=== PATIENT | female | born 1980 | race African-American/Black ===

== ENCOUNTER 2022-01-08 09:18 | Emergency (ER) | payer OTHER ==
[~2022-01-08] VITALS: Ht 154.9 cm; Wt 61.8 kg
--- NOTE | 2022-01-08 09:51 | PHYS DOC ---
Past History Past Surgical History: No Surgical History Alcohol Use: None General Adult EDM: Chief Complaint: ABDOMINAL PAIN HPI: HPI: Patient is a 41-year-old female sent in from the area medical clinic for left lower quadrant pain. Patient states the pain started last night. She reports being in from out of town and eating a lot of fast food, does not her normal diet. Patient states she has not had a bowel movement for the past 2 days. Denies any vaginal bleeding or discharge, denies any urinary complaints. Review of Systems: Review of Systems: All other systems within normal limits except for as noted in the HPI Allergies: Allergies: Allergies Coded Allergies Type Severity Reaction Last Updated Verified No Known Drug Allergies 01/08/22 No Physical Exam: PE: Constitutional: Well developed, well nourished, no acute distress, non-toxic appearance. [] HENT: Normocephalic, atraumatic, bilateral external ears normal, nose normal. [] Eyes: PERRLA, conjunctiva normal, no discharge. [] Neck: No rigidity, supple, no stridor. [] Cardiovascular: Regular rate and rhythm, brisk cap refill [] Lungs & Thorax: Non labored symmetric respirations, no tachypnea or respiratory distress [] Abdomen: Soft, nondistended, left lower quadrant tenderness without guarding. Skin: Warm, dry, no erythema, no rash. [] Back: Unremarkable Extremities: No deformities, range of motion grossly intact, no lower extremity edema [] Neurologic: Alert and oriented X 3, no focal deficits noted. [] Psychologic: Affect normal, judgement normal, mood normal. [] Current Patient Data: Vital Signs: Vital Signs Date Time Temp Pulse Resp B/P (MAP) Pulse Ox O2 Delivery O2 Flow Rate FiO2 01/08/22 09:24 97.6 68 18 110/61 (77) 99 Room Air EKG: EKG: [] Radiology/Procedures: Radiology/Procedures: [address] [address] IMAGING REPORT Signed PATIENT: ESMER MORALES ACCOUNT: [id number] : 1980 LOCATION: ER AGE: 41 SEX: F EXAM STATUS: REG ER ORD. PHYSICIAN: TEENA FINNEY MD REASON: LLQ pain-75 ML OMNI 300-CONSTIPATION PROCEDURE: CT ABD PELV W/ IV CONTRST ONLY Exam: CT abdomen/pelvis with intravenous contrast Indication: Left lower quadrant pain, constipation Comparison: None Technique: Helical CT imaging performed of the abdomen and pelvis after the intravenous administration of 75 mL Omnipaque 300 contrast. Sagittal and coronal reformats were obtained. One or more of the following individualized dose reduction techniques were utilized for this examination: 1. Automated exposure control 2. Adjustment of the mA and/or kV according to patient size 3. Use of iterative reconstruction technique. Findings: Lower chest: Lung bases are clear. The heart is normal in size. Liver: Normal. Gallbladder/Biliary Tree: Normal. Pancreas: Normal. Spleen: Normal. Adrenal Glands: Normal. Kidneys/Ureters/Bladder: Kidneys are normal in size. There is a 8 mm hypodense lesion in the left kidney, likely simple cysts but too small to characterize. No hydronephrosis. Bladder is normal. Reproductive Organs: Uterus is retroverted. No adnexal mass. Stomach, small bowel, and colon: The stomach, small bowel, and colon are unremarkable. The appendix is normal. Vasculature: No aortic aneurysm. Lymph Nodes: No lymphadenopathy. Peritoneum and retroperitoneum: Trace free fluid in the pelvis, likely physiolo gic. No free air. Bones: There is mild diffusely increased sclerosis of the L2 vertebral body. The bones are otherwise normal. Miscellaneous: None IMPRESSION: 1. No acute abnormality in the abdomen and pelvis. 2. There is mild diffusely increased sclerotic appearance of the L2 vertebral body relative to the rest of the spine. This could be seen with malignancy. Recommend MRI of the lumbar spine with and without contrast to further evaluate. Electronically signed by: Teena Sofia MD (01/08/2022 11:00 AM) [id number] DICTATED AND SIGNED BY: TEENA SOFIA MD DATE: 01/08/22 1044 CC: TEENA FINNEY MD; PCP,NO ~ [] Heart Score: C/O Chest Pain: No Risk Factors: Risk Factors: DM, Current or recent (<one month) smoker, HTN, HLP, family history of CAD, obesity. Risk Scores: Score 0 - 3: 2.5% MACE over next 6 weeks - Discharge Home Score 4 - 6: 20.3% MACE over next 6 weeks - Admit for Clinical Observation Score 7 - 10: 72.7% MACE over next 6 weeks - Early Invasive Strategies Course & Med Decision Making: Course & Med Decision Making Pertinent Labs and Imaging studies reviewed. (See chart for details) Work-up unremarkable. Discussed abnormal CT findings and printed off a copy for patient to take with her to follow-up with her primary care when she goes back to [place] next week. [] Xin Disclaimer: Xin Disclaimer: This electronic medical record was generated, in whole or in part, using a voice recognition dictation system. 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 May also use suppositories or enemas to help facilitate having a bowel movement. Recommend daily stool softener to prevent constipation in the future. TEENA FINNEY MD January 08, 2022 09:51
[2022-01-08] MEDS ORDERED: IOHEXOL 300 MG/ML 75 ML VIAL. IV ONE (10:00)
[2022-01-08] MEDS ORDERED: CONTRAST GIVEN. MC PRN (10:15)
[2022-01-08 10:29] LABS: BASO % 1 % (0-3); EOS % 1 % (0-3); HEMATOCRIT 39.9 % (36.0-47.0); HEMOGLOBIN 13.4 g/dL (12.0-15.5); LYMPH # 1.4 x10^3/uL (1.0-4.8); LYMPH % 37 % (24-48); MEAN CORPUSCULAR HEMOGLOBIN 31 pg (25-35); MEAN CORPUSCULAR HGB CONC 34 g/dL (31-37); MEAN CORPUSCULAR VOLUME 93 fL (79-100); MONO # 0.4 x10^3/uL (0.0-1.1); MONO % 12 % (0-9); NEUT # 1.9 x10^3uL (1.8-7.7); NEUT % 50 % (31-73); PLATELET COUNT 191 x10^3/uL (140-400); RED BLOOD COUNT 4.27 x10^6/uL (3.50-5.40); RED CELL DISTRIBUTION WIDTH 14.3 % (11.5-14.5); WHITE BLOOD COUNT 3.8 x10^3/uL (4.0-11.0)
--- NOTE | 2022-01-08 11:02 | RAD ---
Exam: CT abdomen/pelvis with intravenous contrast Indication: Left lower quadrant pain, constipation Comparison: None Technique: Helical CT imaging performed of the abdomen and pelvis after the intravenous administratio n of 75 mL Omnipaque 300 contrast. Sagittal and coronal reformats were obtained. One or more of the following individualized dose reduction techniques were utilized for this examinat ion: 1. Automated exposure control 2. Adjustment of the mA and/or kV according to patient size 3. Use of iterative reconstruction technique. Findings: Lower chest: Lung bases are clear. The heart is normal in size. Liver: Normal. Gallbladder/Biliary Tree: Normal. Pancreas: Normal. Spleen: Normal. Adrenal Glands: Normal. Kidneys/Ureters/Bladder: Kidneys are normal in size. There is a 8 mm hypodense lesion in the left kid yon, likely simple cysts but too small to characterize. No hydronephrosis. Bladder is normal. Reproductive Organs: Uterus is retroverted. No adnexal mass. Stomach, small bowel, and colon: The stomach, small bowel, and colon are unremarkable. The appendix i s normal. Vasculature: No aortic aneurysm. Lymph Nodes: No lymphadenopathy. Peritoneum and retroperitoneum: Trace free fluid in the pelvis, likely physiologic. No free air. Bones: There is mild diffusely increased sclerosis of the L2 vertebral body. The bones are otherwise normal. Miscellaneous: None IMPRESSION: 1. No acute abnormality in the abdomen and pelvis. 2. There is mild diffusely increased sclerotic appearance of the L2 vertebral body relative to the rest of the spine. This could be seen with malignancy. Recommend MRI of the lumbar spine with and wit hout contrast to further evaluate. Electronically signed by: Teena Sofia MD (01/08/2022 11:00 AM) [id number]
[2022-01-08 11:20] LABS: ALBUMIN 3.4 g/dL (3.4-5.0); DIRECT BILIRUBIN 0.1 mg/dL (0.0-0.2); TOTAL BILIRUBIN 0.4 mg/dL (0.2-1.0); TOTAL PROTEIN 6.9 g/dL (6.4-8.2)
[2022-01-08 11:38] LABS: BACTERIA,URINE 0 /HPF (0-FEW); CLARITY,URINE CLEAR; COLOR,URINE YELLOW; GLUCOSE,URINE NEG (NEG); NITRITE,URINE NEG (NEG); SQUAMOUS EPITHELIAL CELL,UR MOD /LPF; UROBILINOGEN,URINE 0.2 mg/dL (0.2 mg/dL); WBC,URINE RARE /HPF (0-4)
[2022-01-08 12:11] VITALS: BP 105/55
[2022-01-08 12:28] LABS: HEMOGLOBIN ISTAT 13.3 gm/dL; POTASSIUM ISTAT 4.1 mmol/L (3.5-5.0)
== END 2022-01-08 12:14 | disposition home or self-care (01) ==
LOC: ER 09:18
DX: R10.32 Left lower quadrant pain (principal)
CPT/HCPCS: 36415; 74177; 80047; 80076; 81001; 81025; 83690; 85025; 99285; Q9967